=== PATIENT | female | born 1985 | race Caucasian/White ===

== ENCOUNTER 2022-06-23 08:45 | Outpatient (CLI) | payer OTHER | END 2022-06-23 08:47 | disposition home or self-care (01) | LOC: RAD 08:45 → RX STUDY 08:45 → RAD 08:47 | PROVIDERS: ATTEND General Practice | DX: M62.838 Other muscle spasm (principal) ==

== ENCOUNTER 2022-06-30 15:44 | Outpatient (CLI) | payer OTHER | END 2022-06-30 16:14 | disposition home or self-care (01) | LOC: RAD 15:44 | PROVIDERS: ATTEND Specialist | DX: M54.59 Other low back pain (principal) ==

== ENCOUNTER 2023-09-08 15:06 | Outpatient (CLI) | payer OTHER | END 2023-09-08 15:28 | disposition home or self-care (01) | LOC: RAD 15:06 | DX: J32.1 Chronic frontal sinusitis (principal) ==

== ENCOUNTER 2023-11-06 11:09 | Outpatient (CLI) | payer OTHER | END 2023-11-06 11:21 | disposition home or self-care (01) | LOC: SONOGRAMA 11:09 | DX: N83.201 Unspecified ovarian cyst, right side (principal) ==

== ENCOUNTER 2023-11-08 07:52 | Outpatient (CLI) | payer OTHER | END 2023-11-08 08:03 | disposition home or self-care (01) | LOC: TOM 07:52 | PROVIDERS: ATTEND Specialist | DX: R10.30 Lower abdominal pain, unspecified (principal); Z11.3 Encounter for screening for infections with a predominantly sexual mode of transmission ==

== ENCOUNTER 2024-02-28 09:29 | Outpatient (CLI) | payer OTHER | END 2024-02-28 09:43 | disposition home or self-care (01) | LOC: TOM 09:29 | PROVIDERS: ATTEND General Practice | DX: R10.30 Lower abdominal pain, unspecified (principal); R10.10 Upper abdominal pain, unspecified; R10.2 Pelvic and perineal pain ==

== ENCOUNTER 2024-07-23 07:58 | Outpatient (CLI) | payer OTHER | END 2024-07-23 08:08 | disposition home or self-care (01) | LOC: SONOGRAMA 07:58 | PROVIDERS: ATTEND Specialist | DX: R10.9 Unspecified abdominal pain (principal) ==